=== PATIENT | female | born 1990 | race Caucasian/White ===

== ENCOUNTER 2018-01-15 09:11 | Inpatient (IN) | payer OTHER ==
--- NOTE | 2018-01-15 10:16 | HP ---
General Information - General Information Maternal Age: 27 Grav: 1 Para: 0 SAB: 0 IEA: 0 Estimated Due Date: 01/18/18 Determined By: LMP Gestational Age in Weeks and Days: 39 Weeks and 4 Days Maternal Blood Type and Rh: A Positive - Results this Serology/RPR Result: Non-Reactive Rubella Result: Immune HBsAg Result: Negative HIV Result: Negative GBS Culture Result: Negative Past Medical History Delivery History: See Records Pertinent Past Medical History: Non-Contributory Pertinent Past Surgical History: See Records Past Surgical History Comment: Hx tooth implant 2004 Pertinent Family History: See Records Family History Comment: Hx cerebral hemorrhage, DM - Antepartal Records Antepartal Records: Reviewed, Uncomplicated Review of Systems Constitutional: Uncomfortable CV Complaint: No Respiratory: Shortness of Breath: No Gastrointestinal: No Nausea/Vomiting, Normal Bowel Movement Genitourinary: Bleeding - +Dark brown spotting, No Dysuria, No Leaking Fluid Musculoskeletal: Contractions Neurological: No Headache, No Visual Changes Movement: Normal Exam Allergies/Adverse Reactions: Allergies No Known Allergies Allergy (Verified 01/15/18 09:36) BP 102/57 HR 92 T 98.4 RR 18 - Measurements Height: 5 ft 3.39 in Weight: 145 lb Weight in lbs: 145 Body Mass Index (BMI): 25.3 Pre- Weight: 110 lb Weight Gained This : 35 lbs and 0 ozs - Exam Abdomen: No Upper Quadrant Pain Breast: Breast Exam Deferred CVA: No CVA Tenderness Extremities: No Edema Heart: Normal Rhythm/Heart Sounds HEENT: No Significant Findings Lungs: Clear Bilaterally Rectal: Rectal Exam Deferred Thyroid: No Thyromegaly - Cervical Exam 5cm/100%/vtx +1 - Abdominal Exam Abdomen Exam: Non-Tender, Fundal Height Consistent with Dates - Membranes Membrane Status: Intact - Ultrasound/Biophysical Profile Ultrasound Status: Not Done EFM Findings - External Monitor Findings Baseline Heart Rate: 130 External Monitor Findings: Accelerations Present, No Pattern of Variable or Late Decelerations, Variability Moderate, Baseline Stable External Monitor Findings Comment: No evidence of metabolic acidemia Contractions: Regular, Moderate, 45-90 Seconds, >90 Seconds Assessment/Plan - Reason for Visit Reason for Visit: IUP at 39-4/7 here for labor evaluation - Obstetrical Risk Factors Risk Factors Comment: No identified risk factors - Plan Plan: Active Labor, IV Hydration Plan Comment: Pt desires labor epidural for pain mgmt - Date/Time of Admission Date of Admission: 01/15/18 Time of Admission: 10:10
[2018-01-15 10:34] LABS: ABS Basophils 0 10^3/ul (0-0.2); ABS Eosinophils 0 10^3/ul (0-0.6); ABS Lymphocytes 2.3 10^3/ul (1.0-4.8); ABS Monocytes 0.9 10^3/ul (0-0.8); ABS Nucleated RBC 0 10^3/ul; Eosinophil % 0.1 % (0-6); Hematocrit 39 % (35-47); Hemoglobin 13.3 g/dl (12.0-16.0); Lymphocyte % 17.1 % (25-47); Mean Corpuscular HGB Conc 34 g/dl (31-36); Mean Corpuscular Hemoglobin 33 pg (27-31); Mean Corpuscular Volume 97 fL (80-97); Mean Platelet Volume 10 um3 (7.4-10.4); Nucleated Red Blood Cells % 0.1; Platelet Count 179 10^3/ul (150-450); Red Blood Count 4.04 10^6/ul (4.0-5.4); Red Cell Distribution Width 14 % (10.5-15); White Blood Count 13.3 10^3/ul (3.5-10.8)
[2018-01-15] MEDS ORDERED: OBEPIDURAL* 250 ML EPIDURAL ONE (10:35)
[2018-01-15] MEDS ORDERED: Sodium Citrate/Citric Acid* 15 ML UDC PO PRN (11:55)
[2018-01-15] MEDS ORDERED: EPHEDrine (Pressors)* 50 MG/ML VIAL IV PUSH PRN ×2 (11:55)
[2018-01-15] MEDS ORDERED: Famotidine TAB* 20 MG PO PRN (11:55)
[2018-01-15] MEDS ORDERED: Phenylephrine IV* 40 MCG/ML 10 ML SYRINGE IV PUSH PRN ×2 (11:55)
[2018-01-15] MEDS ORDERED: OBEPIDURAL* 250 ML EPIDURAL SCH (12:00)
[2018-01-15] MEDS ORDERED: fentaNYL* 50 MCG/ML 2 ML VIAL (100 MCG VIAL) ONE (12:48)
[2018-01-15] MEDS ORDERED: Oxytocin in LR* 20 UNITS/1,000 ML BAG IVPB ONE (14:11)
[2018-01-15] MEDS ORDERED: Misoprostol TAB* 200 MCG ONE (14:55)
[2018-01-15] MEDS ORDERED: Glycerin ADULT SUPP PR PRN (15:29)
[2018-01-15] MEDS ORDERED: Misoprostol TAB* 200 MCG PR ONE (15:29)
[2018-01-15] MEDS ORDERED: Witch Hazel PAD* JAR TOPICAL PRN (15:29)
[2018-01-15] MEDS ORDERED: Acetaminophen TAB* 325 MG PO PRN (15:29)
[2018-01-15] MEDS ORDERED: Oxytocin in LR* 20 UNITS/1,000 ML BAG IVPB SCH (16:00)
[2018-01-15] MEDS: Ibuprofen TAB* 600 MG PO PRN (18:43)
[2018-01-15] MEDS: Docusate CAP* 100 MG PO SCH (20:23)
[2018-01-15] MEDS: Simethicone TAB* 80 MG TAB.CHEW PO SCH (20:23)
[2018-01-16] MEDS: Ibuprofen TAB* 600 MG PO PRN ×4 (00:31→20:12)
[2018-01-16 07:19] LABS: ABS Basophils 0 10^3/ul (0-0.2); ABS Eosinophils 0 10^3/ul (0-0.6); ABS Lymphocytes 2.8 10^3/ul (1.0-4.8); ABS Monocytes 1.2 10^3/ul (0-0.8); ABS Neutrophils 11.6 10^3/ul (1.5-7.7); ABS Nucleated RBC 0 10^3/ul; Eosinophil % 0.1 % (0-6); Hematocrit 24 % (35-47); Hemoglobin 8.3 g/dl (12.0-16.0); Lymphocyte % 17.9 % (25-47); Mean Corpuscular HGB Conc 34 g/dl (31-36); Mean Corpuscular Hemoglobin 33 pg (27-31); Mean Corpuscular Volume 97 fL (80-97); Mean Platelet Volume 10 um3 (7.4-10.4); Nucleated Red Blood Cells % 0; Platelet Count 138 10^3/ul (150-450); Red Blood Count 2.51 10^6/ul (4.0-5.4); Red Cell Distribution Width 14 % (10.5-15); White Blood Count 15.6 10^3/ul (3.5-10.8)
[2018-01-16] MEDS: Ferrous Gluconate TAB* 324 MG TAB PO SCH ×2 (08:37→20:13)
[2018-01-16] MEDS: Docusate CAP* 100 MG PO SCH ×3 (08:37→20:13)
[2018-01-16] MEDS: Simethicone TAB* 80 MG TAB.CHEW PO SCH (20:13)
[2018-01-17] MEDS: Ibuprofen TAB* 600 MG PO PRN (04:40)
[2018-01-17] MEDS: oxyCODONE/Acetamin 5/325 MG* TAB PO PRN ×2 (04:44→09:18)
[2018-01-17] MEDS: Docusate CAP* 100 MG PO SCH ×3 (09:15→22:38)
[2018-01-17] MEDS: Ferrous Gluconate TAB* 324 MG TAB PO SCH ×2 (09:15→22:38)
[2018-01-17] MEDS ORDERED: Butalb/Acetamin/Caff TAB* 1 TAB PO ONE (10:00)
[2018-01-17] MEDS ORDERED: oxyCODONE TAB* 5 MG TAB PO PRN (11:38)
[2018-01-17] MEDS: Butalb/Acetamin/Caff TAB* 1 TAB PO SCH ×5 (14:08→22:37)
[2018-01-17] MEDS: Dibucaine 1% 28.35 GM TUBE PR PRN (22:42)
[2018-01-18] MEDS: Butalb/Acetamin/Caff TAB* 1 TAB PO SCH ×9 (02:33→14:36)
[2018-01-18 05:56] LABS: Hematocrit 26 % (35-47); Hemoglobin 8.9 g/dl (12.0-16.0)
[2018-01-18 08:17] VITALS: BP 101/61
[2018-01-18] MEDS: Docusate CAP* 100 MG PO SCH (08:43)
[2018-01-18] MEDS: Ferrous Gluconate TAB* 324 MG TAB PO SCH (08:43)
[2018-01-18] MEDS: Ibuprofen TAB* 600 MG PO PRN (10:44)
--- NOTE | 2018-01-18 11:06 | PTEDU ---
Patient Name: MICHELLE CASTANO MICHELLE CASTANO selected video: Never Ever Shake a Baby to view on 01/18/2018 at 11:05:24 AM from [id number]
[2018-01-18] MEDS: Dibucaine 1% 28.35 GM TUBE PR PRN (11:25)
== END 2018-01-18 15:57 | disposition home or self-care (01) | DRG 560 ==
LOC: MCHOBOUT 09:11 → MCHOB 10:07
PROVIDERS: ADMIT Midwife; ATTEND Midwife
PROC: 10E0XZZ Delivery of Products of Conception, External Approach (ICD-10-PCS; principal; 2018-01-15)
PROC: 4A1HXCZ Monitoring of Products of Conception, Cardiac Rate, External Approach (ICD-10-PCS; 2018-01-15)
PROC: 0KQM0ZZ Repair Perineum Muscle, Open Approach (ICD-10-PCS; 2018-01-15)
DX: O70.1 Second degree perineal laceration during delivery (principal); O72.1 Other immediate postpartum hemorrhage; Z37.0 Single live birth; O22.43 Hemorrhoids in pregnancy, third trimester; O89.4 Spinal and epidural anesthesia-induced headache during the puerperium; O90.81 Anemia of the puerperium; Z3A.39 39 weeks gestation of pregnancy
CPT/HCPCS: 36415; 85014; 85018; 85025; 86850; 86900; 86901; A9270-GY; J3010